=== PATIENT | female | born 1995 | race Caucasian/White ===

== ENCOUNTER 2020-10-04 08:48 | Outpatient (CLI) | payer OTHER | END 2020-10-04 08:49 | disposition home or self-care (01) | LOC: CTENTCT 08:48 | PROVIDERS: ATTEND Otolaryngology Plastic Surgery within the Head & Neck | DX: J32.8 Other chronic sinusitis (principal) | CPT/HCPCS: 70486 ==

== ENCOUNTER 2020-10-22 07:27 | Outpatient (CLI) | payer OTHER ==
[2020-10-22 10:27] LABS: BHCG - Serum Negative (NEGATIVE); Pregs Control Background? CLEAR/WHITE (CLR/WHITE); Pregs Control Bar Appear? YES (CONTROL BAR)
[2020-10-22 17:53] LABS: SARS-CoV-2 PCR by NAA Not Detected (NotDetected)
== END 2020-10-22 07:28 | disposition home or self-care (01) ==
LOC: LABBT 07:27
PROVIDERS: ATTEND Otolaryngology Plastic Surgery within the Head & Neck
DX: Z01.812 Encounter for preprocedural laboratory examination (principal); J32.8 Other chronic sinusitis; J34.3 Hypertrophy of nasal turbinates; J33.9 Nasal polyp, unspecified; Z20.822 Contact with and (suspected) exposure to COVID-19
CPT/HCPCS: 84703; 85014; 87635; U0003; U0005

== ENCOUNTER 2020-10-27 08:36 | Day surgery (SDC) | payer OTHER ==
[2020-10-26 09:27] VITALS: BMI 22.8
[2020-10-27] MEDS ORDERED: AFRIN NASAL MIST 15 ML BOT ONE ×2 (09:03→10:19)
[2020-10-27] MEDS ORDERED: Fentanyl 100 MCG/2 ML VIAL ONE (10:15)
[2020-10-27] MEDS ORDERED: Morphine 2 MG/ML VIAL ONE (10:15)
[2020-10-27] MEDS ORDERED: Lidocaine 1% w/Epinephrine 1:100K 20 ML VIAL ONE (10:19)
[2020-10-27] MEDS ORDERED: Dexamethasone 20 MG/5 ML VIAL ONE (10:57)
[2020-10-27] MEDS ORDERED: PROPOFOL 200 MG/20 ML VIAL ONE (10:57)
[2020-10-27] MEDS ORDERED: Ondansetron PF 4 MG/2 ML Vial ONE (10:57)
[2020-10-27] MEDS ORDERED: Lidocaine 1% PF 5 ML VIAL ONE (10:57)
[2020-10-29 14:37] LABS: Fungus Stain Final report (.)
== END 2020-10-27 13:02 | disposition home or self-care (01) ==
LOC: SDC 08:36
PROVIDERS: ATTEND Otolaryngology Plastic Surgery within the Head & Neck
PROC: 09BT8ZZ Excision of Left Frontal Sinus, Via Natural or Artificial Opening Endoscopic (ICD-10-PCS; principal; 2020-10-27)
PROC: 09BL8ZZ Excision of Nasal Turbinate, Via Natural or Artificial Opening Endoscopic (ICD-10-PCS; principal; 2020-10-27)
PROC: 09BU8ZZ Excision of Right Ethmoid Sinus, Via Natural or Artificial Opening Endoscopic (ICD-10-PCS; principal; 2020-10-27)
PROC: 8E09XBZ Computer Assisted Procedure of Head and Neck Region (ICD-10-PCS; principal; 2020-10-27)
PROC: 09BV8ZZ Excision of Left Ethmoid Sinus, Via Natural or Artificial Opening Endoscopic (ICD-10-PCS; principal; 2020-10-27)
PROC: 09BS8ZZ Excision of Right Frontal Sinus, Via Natural or Artificial Opening Endoscopic (ICD-10-PCS; principal; 2020-10-27)
PROC: 09CX8ZZ Extirpation of Matter from Left Sphenoid Sinus, Via Natural or Artificial Opening Endoscopic (ICD-10-PCS; principal; 2020-10-27)
PROC: 099Q8ZZ Drainage of Right Maxillary Sinus, Via Natural or Artificial Opening Endoscopic (ICD-10-PCS; principal; 2020-10-27)
PROC: 09CW8ZZ Extirpation of Matter from Right Sphenoid Sinus, Via Natural or Artificial Opening Endoscopic (ICD-10-PCS; principal; 2020-10-27)
PROC: 099R8ZZ Drainage of Left Maxillary Sinus, Via Natural or Artificial Opening Endoscopic (ICD-10-PCS; principal; 2020-10-27)
DX: J32.8 Other chronic sinusitis (principal); J34.3 Hypertrophy of nasal turbinates; J33.0 Polyp of nasal cavity; Z79.899 Other long term (current) drug therapy
CPT/HCPCS: 87070; 87102; 87205; 87206; 88304; C2625; J1100; J2270; J2405; J2704; J3010